=== PATIENT | female | born 1970 | race Caucasian/White ===

== ENCOUNTER 2024-05-26 09:55 | Day surgery (SDC) | payer OTHER, SELFPAY ==
[2024-05-19 13:52] VITALS: BMI 26.3
[2024-05-26] VITALS (14 sets, daily range): BP systolic 109–142; BP diastolic 72–91; PULSE 68–92; RESP 8–20; TEMP 36.1–36.6; O2SAT 94–99; BMI 24.7
--- NOTE | 2024-05-26 06:00 | DI.RAD.S_ITS ---
PROCEDURE: XR KNEE RT 1TO2V INDICATIONS: TKA TECHNIQUE: 2 view(s) of the knee acquired. COMPARISON: None. FINDINGS: Bones: Patient is status post knee joint arthroplasty. Hardware components are in expected positions. Visualized bony structures are intact. Soft tissues: Overlying postoperative changes are noted. IMPRESSION: Expected immediate postoperative appearance, status post total right knee arthroplasty. Dictated by: Aniket Schwartz M.D. on 05/26/2024 at 16:10 Approved by: Aniket Schwartz M.D. on 05/26/2024 at 16:10
[2024-05-26] MEDS: CELECOXIB 200 MG CAPSULE 400 MG PO (10:57)
[2024-05-26] MEDS: LACTATED RINGERS 1,000 ML 42 ML IV (10:57)
[2024-05-26] MEDS: ACETAMINOPHEN 325 MG TABLET 975 MG PO (10:57)
--- NOTE | 2024-05-26 12:10 | PM.PREOP ---
Pre-operative Note Interval Note History & Physical reviewed/Exam performed by Physician: Yes Changes to H&P: No
--- NOTE | 2024-05-26 12:19 | SUR.OPER ---
Supine on padded OR bed, head on pillow, arms secured on padded arm boards at <90 degrees abduction, legs uncrossed, safety belt at thigh, tape over blanket over non op leg. operative leg draped free in demayo knee positioner
--- NOTE | 2024-05-26 12:23 | SUR.PREOP ---
Block start time [1213] . Monitoring initiated and maintained throughout procedure. Oxygen and medications given per anesthesiologist instructions. Patient remained stable throughout procedure, no adverse reactions noted. Block end time [1221].
--- NOTE | 2024-05-26 12:29 | PM.OP.1 ---
Operative Date/Time/Diagnoses Date of procedure: 05/26/24 Time of procedure: 12:29 Pre-op diagnosis: Right knee arthritis Post-op diagnosis: same Procedure & Clinicians Procedure: Total knee arthroplasty right CPT code 18165 Robotic assisted surgery [id number] Computer navigated assisted surgery [id number] Same procedure as scheduled: Yes Indications: The patient has significant pain associated with osteoarthritis of the right knee. It is associated with morning stiffness. Pain interferes with daily normal function including ambulation standing and any activities that are weight-bearing. It interferes with sleep. There is crepitation with range of motion. There is marked joint line tenderness. X-rays show significant levels of osteoarthritis. Double attempted previous conservative treatment has been rendered. The patient has failed exercise program, medications and previous injections. Patient is indicated for total knee arthroplasty. The risks and benefits of the procedure have been discussed with the patient and given the opportunity to ask questions. The risks of surgery include but are not limited to infection, malunion, nonunion, persistence of pain, damage to nerves and blood vessels, posttraumatic arthritis, DVT, PE, cardiopulmonary complications and . The patient expressed a thorough understanding of the risks and benefits of surgery and has elected to proceed. Consent was signed. During the operation, the services of a physician assistant professor surgical technology were medically indicated and necessary to provide the exposure of the operative site for the surgical procedure and to maintain the limb in a proper position to carry out the operation safely and efficiently. Without a qualified commercial real estate assistant being present this would extended the operative procedure and made the procedure technically more difficult to perform. Surgeon: Katie Alvarado Contracts Law Professor: Slick Almendarez Anesthesia Type: General, Peripheral nerve block and Local Operative Notes Findings: Knee arthritis end-stage right Closure Type: primary Specimen(s): none sent Prosthetic devices, grafts, tissues, transplants, or devices: Haji and Nephew journey 2 bCS Femur Oxinium Tibia Poly Patella Estimated Blood Loss (mL): 50 Blood products transfused: none Tourniquet time (min): 77 Procedure in detail: Patient was seen in the preoperative area where the patient and site of surgery were identified in the operative knee was marked informed consent confirmed. This was the right knee. Patient received the appropriate preoperative antibiotics this was 2 g of Ancef. And other preoperative medications and was taken to the operating room placed on operating table in the supine position. Spinal anesthetic were administered. The operative extremity was then prepped and draped in the standard sterile fashion with a nonsterile tourniquet high on the thigh. Patient was placed on the green foam bolsters. A lateral post was placed at the level of the proximal thigh /trochanter area as a lateral post. Formal time-out procedure was performed confirming the patient's side and site of surgery and administration of appropriate preoperative antibiotics and implants were in the room accounted for. All were in agreement. Patient received a preoperative dose of tranexamic acid and then a 2nd dose at tourniquet release Patient was prepped and draped in the standard sterile fashion and the foot was placed into the leg kong. This was taken into high flexion and the incision was marked out over the anterior knee to the level of the medial tubercle tubercle. The Esmarch was then used for exsanguination and the tourniquet was inflated to 250 mmHg. Was made through the skin and subcutaneous tissue in high flexion this was then brought down into 30? of flexion for the medial parapatellar arthrotomy. A marker pen was used to marvin the arthrotomy site for later repair. Joint fluid was evacuated. The anterior osteophytes and soft tissues were removed. Routine medial release was initially made along the medial proximal tibia with Bovie. The patella was 1st cut using the saw sized and prepped and then subluxed throughout the case and protected. The leg was then taken into extension and the patella was everted and the patella was cut to accommodate the patellar button. This was sized to a 32 mm button for a 7.5 mm thickness to recreate the original dimensions of the patella. Poly was removed and the protector replaced and the patella was subluxed and the knee was taken back up into flexion and attention was returned to the femur. Then the rotational landmarks of Whitesides line and the trans epicondylar axis were marked on the femur with electrocautery. ACL and PCL were released. Then the Cori robotic pins were placed into the femur and tibia and the race set up. Landmarks were established and the robotic planning was commenced. Plan was developed and improved and adjusted as necessary to create a balanced knee. Starting alignment was 2 degrees of valgus. Planned correction to degree 1 valgus I put in 1 degree in the femur. Degrees and external rotation distal femur 6?. This achieved a 1-2 mm balance in flexion and extension. Plan was satisfactory the bur was used to remove the distal femur then the 5 in 1 cutting block was applied complete the femur cuts. Attention was then turned to the tibia and the tibial resection was made in accordance with the robotic planning. The trials were placed. And the femoral notch was cut a standard fashion using Reamer then slap hammer. The knee was trialed and the checked. Knee was balanced in flexion extension. Range of motion 0-135 degrees was obtained. The rotation femoral trial was marked Bovie on the bone and checked with a long solis. The tibia was then finished with a drill and flange cut and then The trial implants were removed. Then in extension the posterior capsule was injected with a mixture of 40 mL of 0.25% Marcaine and 20 mL of Exparel care to avoid excessive injection posterior laterally. The remainder of this was saved for the capsule and subcutaneous tissue and placed during cement curing. The wound and bone was irrigated with pulsatile lavage. This was then dried with a sponge. The components were verified and opened and the cement was mixed. Cement was applied to the components and then to the bone then the tibia was cemented in place 1st followed by the femur then the patella. Excess cement was removed. With care looking around the back of the knee. Remainder of the injection was injected around the capsule. trial poly was placed back in the leg was placed into extension for the patellar cementing. After this was cured approximately 15 minutes later and the dilute Betadine solution was placed for at least 3 minutes in the wound this was then irrigated out and the final poly was placed. This was a 10 mm poly. The tourniquet was released hemostasis was achieved. Final 1g of tranexamic acid was given IV at the time of tourniquet release. The capsule was closed with 1. Ethibond suture. Followed by a running Quill stitch. Subcutaneous layer was closed with 3-0 Vicryl suture. Skin was closed with a running V lock suture Stratafix Monocryl type suture and Dermabond. An Aquacel dressing was placed . An Reji wrap was applied. Anesthetic was terminated the patient was woken from anesthesia and taken to recovery room in good condition. There no immediate complications from this procedure. The patient will be maintained on a standard total knee replacement protocol with weight-bearing as tolerated. Complications: none Post-operative Condition: stable Disposition: PACU Plan for aftercare: Standard total knee protocol. Weightbear as tolerated. Immediate range of motion. Commence physical therapy in 1 week. Aspirin 81 mg b.i.d. x6 weeks for DVT prophylaxis
[2024-05-26] MEDS: CEFAZOLIN 2 GM/100 ML PREMIX 100 ML IV (12:34)
[2024-05-26] MEDS: TRANEXAMIC ACID 1,000 MG VIAL 2000 MG INJ (12:47)
[2024-05-26] MEDS: BUPIVACAINE 0.25% (PF) 60 ML, EPINEPHrine 0.3 MG INJ (13:10)
[2024-05-26] MEDS: BUPIVACAINE LIPOSOME 266 MG/20 ML VIAL INJ (14:09)
[2024-05-26] MEDS: OXYCODONE IR 5 MG TABLET PO (15:21)
--- NOTE | 2024-05-26 15:49 | SUR.PHASEII ---
Xray into see pt. and obtain X-ray.
[2024-05-26] MEDS: KETOROLAC 0.5% OPHTH DROPS 5 ML 1 DROPS EYE-LEFT (16:26)
--- NOTE | 2024-05-26 17:26 | PT.IIE ---
Current Diagnoses Bilateral primary osteoarthritis of knee (05/26/24) Unilateral primary osteoarthritis, right knee (05/26/24) Other specified joint disorders, unspecified knee (05/26/24) Surgery Performed Operation Date: 05/26/24 11:45 Actual Procedures p Total Knee Arthroplasty - Robot(Right) - Katie Alvarado MD Surgical History (Last Updated 05/19/24 @ 14:38 by Alma Howard, RN) History of breast lift History of hysterectomy Hx of blepharoplasty (06/2023) S/P breast lumpectomy S/P right knee arthroscopy (10/2023) Medical History (Last Updated 05/19/24 @ 14:39 by Alma Howard, RN) Anxiety and depression Bakers cyst Blind right eye Breast CA (2017) Easy bruisability 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 2 stairs with railing to enter . Main floor living. Home Equipment Four Wheel Walker,Straight Cane M2 PT-IP Current Condition Start: 05/26/24 17:17 Freq: NEEDED Status: Discharge Protocol: Document 05/26/24 17:18 KJ (Rec: 05/26/24 17:26 KJ [id number]) Physical Therapy Current Condition Current Condition Evaluation Date 05/26/24 Treatment Diagnosis impaired mobility Onset Date 05/26/24 M3 PT-IP Subjective Start: 05/26/24 17:17 Freq: NEEDED Status: Discharge Protocol: Document 05/26/24 17:18 KJ (Rec: 05/26/24 17:26 KJ [id number]) Subjective Physical Therapy Visit Type Type Initial Evaluation Visit Start Time 16:43 Visit Stop Time 17:14 Physical Therapy Visit Comments Patient Comments minimal pain, has some numbness and tingling from n block Patient Goals to go home Therapy Pain Assessment Pain When Pain Assessed At Rest Pain Present Pain Present Pain Reported Location Right Knee Intensity 2 Pain Management Techniques Re-positioning M4 PT-IP Mobility and Gait Start: 05/26/24 17:17 Freq: NEEDED Status: Discharge Protocol: Document 05/26/24 17:18 KJ (Rec: 05/26/24 17:26 KJ [id number]) PT-Transfer Assessment Sit to and From Stand Sit to and from Stand Standby Assistance Equipment Transfer Assistive Device Gait Belt,4 Wheeled Walker Orthotic/Prosthetic Devices or Brace: No Comments Mobility Comments sit to/from stand w/CGA Gait Assessment Gait Gait Assistance Required: Contact Guard Assist Distance (Feet) 15 Able to Maintain Weight Bearing Status Yes During Gait Assistive Devices Assistive Device Gait Belt,4 Wheeled Walker Gait Deviations General Gait Pattern Narrow Based Gait Factors Limiting Gait Function Factors Limiting Gait Function Decreased Sensation Comments Gait Comments Provided cuing for shoulder relaxation, good upright standing posture, normal MATILDE, avoiding quick turns or twists Stair Climbing Assessment Comments Stair Climbing Comments verbally instructed pt and on stairs PT-Balance Assessment Sitting Balance and Reactions Static Sitting Balance Ability Normal Dynamic Sitting Balance Ability Normal Standing Balance and Reactions Static Standing Balance Ability Good Dynamic Standing Balance Ability Good M5 PT-IP Objective Assessments Start: 05/26/24 17:17 Freq: NEEDED Status: Discharge Protocol: Document 05/26/24 17:18 KJ (Rec: 05/26/24 17:26 KJ [id number]) Orientation Orientation/Cognition Level of Alertness Alert Orientation Name,Place,Situation Safety Awareness Understands Safety Issues Gross Range of Motion Lower Extremity ROM Assessment Right Impaired Impairments limited R knee flex Strength Lower Extremity Strength Assessment Right Impaired Knee limited due to surgery Coordination Assessment Gross Coordination Gross Coordination WNL M6 PT-IP Treatment Start: 05/26/24 17:17 Freq: NEEDED Status: Discharge Protocol: Document 05/26/24 17:18 KJ (Rec: 05/26/24 17:26 KJ [id number]) Physical Therapy Treatment Exercises Exercises Ankle Pumps,Gluteal Sets,Quad Sets Education Education Provided Weight Bearing Status,Post-Op Packet,Safety M7 PT-IP Assessment and Plan Start: 05/26/24 17:17 Freq: NEEDED Status: Discharge Protocol: Document 05/26/24 17:18 KJ (Rec: 05/26/24 17:26 KJ [id number]) PT Summary Assessment and Plan Potential Rehabilitation Potential Excellent Status of Condition at Evaluation Evolving Summary Impairments Pain,ROM,Strength,Gait Progress Towards Goals Progressing Toward Goals Assessment Summary Pt mobilized well following surgery. Treatment Plan Other Recommendations and Next Treatment Pt has appt for outpatient Focus therapy next week Weight Bearing Status Weight Bearing Status Weight Bear as Tolerated Discharge Recommendations PT Discharge Recommendations Home with Assistance
== END 2024-05-26 17:20 | disposition home or self-care (01) ==
LOC: OR 09:57 → AC 09:58
PROVIDERS: Referring Provider Orthopaedic Surgery Foot and Ankle Surgery; Visit Provider Orthopaedic Surgery Foot and Ankle Surgery
PROC: 0SRC0JZ Replacement of Right Knee Joint with Synthetic Substitute, Open Approach (ICD-10-PCS; CPT 27447; principal; 2024-05-26 11:45)
DX: M17.11 Unilateral primary osteoarthritis, right knee (principal); G89.18 Other acute postprocedural pain
CPT/HCPCS: 27447; 64450; 73560; 97110; 97161; C1776; S2900; C9290; J0171; J0690; J1100; J2250; J2405; J2704; J3010